=== PATIENT | male | born 1930 | race Caucasian/White ===

== ENCOUNTER 2018-02-03 19:32 | Emergency (ER) | payer MEDICARE, BC ==
[2018-02-03] MEDS ORDERED: Ondansetron 4 MG/2 ML SDV IV ONE (20:13)
[2018-02-03] MEDS ORDERED: Morphine 2 MG/ML Syringe IVPUSH ONE ×2 (20:13→22:04)
[2018-02-03 20:26] LABS: CHLORIDE,CL 102 mmol/L (101-111); SODIUM,NA 139 mmol/L (135-145)
--- NOTE | 2018-02-03 21:12 | EDM.PDOC ---
ED HPI GENERAL MEDICAL PROBLEM - General Chief Complaint: Gastrointestinal Problem Stated Complaint: [id number] PAIN IN SIDE VOMITTING Time Seen by Provider: 02/03/18 19:45 Source of Information: Reports: Patient, Family History Limitations: Reports: No Limitations - History of Present Illness INITIAL COMMENTS - FREE TEXT/NARRATIVE: ED with family c/o of severe left lower abdominal and flank pain since 530 after vomiting twice. Last meal hamburger and chocolate shake. No fever or chills. Left Abdominal Pain Score (Numeric/FACES): 8 - Related Data Allergies Allergy/AdvReac Type Severity Reaction Status Date / Time No Known Allergies Allergy Verified 02/03/18 19:41 Home Meds: Home Meds . [Unable to Verify Home Med List] 02/03/18 [History] Past Medical History HEENT History: Reports: Cataract - Past Surgical History HEENT Surgical History: Reports: Cataract Surgery Social & Family History - Tobacco Use Smoking Status *Q: Never Smoker Second Hand Smoke Exposure: No - Recreational Drug Use Recreational Drug Use: No ED ROS GENERAL - Review of Systems Review Of Systems: See Below Constitutional: Denies: Fever, Chills HEENT: Reports: No Symptoms Respiratory: Reports: No Symptoms Cardiovascular: Reports: No Symptoms GI/Abdominal: Reports: Abdominal Pain (loer left), Nausea (intermittent), Vomiting. Denies: Diarrhea, Distension Musculoskeletal: Reports: No Symptoms Skin: Reports: No Symptoms Neurological: Reports: No Symptoms ED EXAM, GI/ABD - Physical Exam Exam: See Below Exam Limited By: No Limitations General Appearance: Alert, Mild Distress, Thin Ears: Normal External Exam Nose: Normal Inspection Throat/Mouth: Normal Inspection Head: Atraumatic, Normocephalic Respiratory/Chest: No Respiratory Distress, Lungs Clear, Normal Breath Sounds Cardiovascular: Normal Peripheral Pulses, Regular Rate, Rhythm GI/Abdominal Exam: Normal Bowel Sounds, Soft, Tender (left lower, no mass or hernia palpable, left flank tender) Extremities: Normal Inspection Neurological: Alert, Oriented, Normal Cognition, Normal Gait Psychiatric: Normal Affect, Normal Mood Skin Exam: Warm, Dry, Intact, Normal Color Course - Vital Signs Last Recorded V/S: Last Vital Signs Temp 97.8 F 02/03/18 19:36 Pulse 63 02/03/18 19:56 Resp 18 02/03/18 19:56 BP 126/67 02/03/18 19:56 Pulse Ox 97 04/24/18 19:56 - Orders/Labs/Meds Orders: Active Orders 24 hr Category Date Time Status EKG 12 Lead [EKG Documentation Completion] [RC] STAT Care 02/03/18 20:01 Active Labs: Laboratory Tests 02/03/18 02/03/18 02/03/18 Range/Units 20:00 20:00 20:00 WBC 15.2 H (5.0-10.0) 10^3/uL RBC 4.59 L (4.6-6.2) 10^6/uL Hgb 14.2 (14.0-18.0) g/dL Hct 42.8 (40.0-54.0) % MCV 93.2 (80-100) fL MCH 30.9 (27.0-34.0) pg MCHC 33.2 (33.0-35.0) g/dL Plt Count 236 (150-450) 10^3/uL Neut % (Auto) 82.2 H (42.2-75.2) % Lymph % (Auto) 11.8 L (20.5-50.1) % [place] % (Auto) 4.5 (2-8) % Eos % (Auto) 1.3 (1.0-3.0) % Baso % (Auto) 0.2 (0.0-1.0) % Sodium 139 (135-145) mmol/L Potassium 4.1 (3.6-5.0) mmol/L Chloride 102 (101-111) mmol/L Carbon Dioxide 27.0 (21.0-31.0) mmol/L Anion Gap 14.1 BUN 20 H (7-18) mg/dL Creatinine 1.2 (0.6-1.3) mg/dL Est Cr Clr Drug Dosing 38.27 mL/min Estimated GFR (MDRD) 57 BUN/Creatinine Ratio 16.66 Glucose 125 H (74-105) mg/dL Calcium 9.2 (8.4-10.2) mg/dl Total Bilirubin 0.6 (0.2-1.0) mg/dL AST 21 (10-42) IU/L ALT 20 (10-60) IU/L Alkaline Phosphatase 48 (42-121) IU/L Troponin I < 0.02 (0.00-0.02) ng/ml Total Protein 7.1 (6.7-8.2) g/dl Albumin 4.0 (3.2-5.5) g/dl Globulin 3.1 Albumin/Globulin Ratio 1.29 Amylase 63 (28-100) U/L Lipase 34 (22-51) U/L Meds: Medications Discontinued Medications Generic Name Dose Route Start Last Admin Trade Name Misti PRN Reason Stop Dose Admin Morphine Sulfate 2 mg 02/03/18 20:13 02/03/18 20:23 Morphine IVPUSH 02/03/18 20:14 2 mg ONETIME ONE Administration Morphine Sulfate 2 mg 02/03/18 22:04 02/03/18 22:16 Morphine IVPUSH 02/03/18 22:05 2 mg ONETIME ONE Administration Ondansetron HCl 4 mg 02/03/18 20:13 02/03/18 20:21 Zofran IV 02/03/18 20:14 4 mg ONETIME ONE Administration - Radiology Interpretation Free Text/Narrative:: CT abdomen; left renal calculi 3mm obstructing at UPJ with hydronephrosis - Re-Assessments/Exams Free Text/Narrative Re-Assessment/Exam: 02/04/18 02:37 Vagal response with retching with drop in HR to low 30's, rapid rebound with cessation of retching return to 80-90's sinus, no ectopy. [facility] accepting of patient. Tx via [facility]. Family present. Code status discussed. Patient desires no CPR or intubation. Departure - Departure Time of Disposition: 22:35 Disposition: DC/Tfer to Acute Hospital 02 Condition: Fair, Undetermined Clinical Impression: Renal calculus, left - Discharge Information Referrals: PCP,None [Primary Care Provider] - Forms: ED Department Discharge - My Orders Last 24 Hours: My Active Orders 02/03/18 20:01 EKG 12 Lead [EKG Documentation Completion] [RC] STAT - Assessment/Plan Last 24 Hours: My Active Orders 02/03/18 20:01 EKG 12 Lead [EKG Documentation Completion] [RC] STAT
--- NOTE | 2018-02-04 14:42 | EKG ---
02/03/2018 - WINIFRED BERKOWITZ MUNIZ - TIME: 1950 hours. FINDINGS: EKG shows sinus bradycardia, rate of 59 per minute. MODL /[id number]
== END 2018-02-03 22:35 ==
LOC: DL.ED 19:32
DX: N13.2 Hydronephrosis with renal and ureteral calculous obstruction (principal)
CPT/HCPCS: 36415; 74176; 80053; 82150; 83690; 84484; 85025; 93005; 93010; 96374; 96376; 99285; J2270; J2405; 99284

== ENCOUNTER 2018-06-29 10:24 | Emergency (ER) | payer MEDICARE, BC ==
--- NOTE | 2018-06-29 10:59 | CT ---
Clinical history: 88-year-old male injured in fall (hit head) Scan technique: Volume acquisition of data emergency unenhanced CT scan of the head and brain obtaine d while the patient was lying supine on the Siemens multi slice scanner [place], [place]. All data archived in the PACS system for storage, reformatting axial/sagittal/cor onal planes and study (bone/brain windows). Interpretation: Uniformly thick bony calvarium without sign of skull fracture, underlying brain contusion or epidural /subdural hematoma. Age-appropriate atrophy symmetric in appearance with underlying mirror-image normal ventricular syste m. Multiple scattered areas of decreased attenuation throughout the periventricular white matter charact eristic of microvascular ischemic change. No sign of acute intracerebral/intraventricular/subarachnoid bleed. Physiologic midline pineal and symmetric choroid plexus calcifications. Cerebellum and brainstem unre markable. Symmetric clear pneumatization of the paranasal and mastoid sinuses. 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 No sign of skull fracture or acute intracranial bleed.
--- NOTE | 2018-06-29 11:01 | CT ---
Clinical history: 88-year-old male injured in fall (hit head). CT head revealed "Atrophy and microvas cular ischemic infarcts". TECHNIQUE: Volume acquisition of data emergency unenhanced CT scan of the cervical spine obtained wit h the patient was lying supine on the Siemens multi slice scanner [place], [place]. All data archived in the PACS system for storage, reformatting axial/sagittal/coronal p lanes and study. Interpretation: Chronic lower cervical disc degeneration i.e. interspace narrowing endplate sclerosis and hypertrophic marginal/uncinate spur formation (spondylolisthesis). Some straightening of usual cervical lordosis and dense reactive facet joint sclerosis at all levels of the cervical spine. No sign of prevertebral soft tissue swelling, acute cervical fracture or spondylolisthesis. No jumped locked facets. 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 No fractures.
--- NOTE | 2018-06-29 11:13 | CR ---
Clinical history: 88-year-old male injured fall. Interpretation: 3 views right shoulder unremarkable. No sign of right shoulder fracture, acromioclavicular separation, or glenohumeral dislocation. Underlying ribs right lung apex unremarkable. No foreign bodies.
[2018-06-29 11:38] LABS: ANION GAP 16.1
--- NOTE | 2018-06-29 11:44 | EDM.PDOC ---
ED HPI GENERAL MEDICAL PROBLEM - General Chief Complaint: General Stated Complaint: PAIN IN HEAD Time Seen by Provider: 06/29/18 11:00 Source of Information: Reports: Patient History Limitations: Reports: No Limitations - History of Present Illness INITIAL COMMENTS - FREE TEXT/NARRATIVE: This 88 yo male patient was brought to the ED by his son due to an episode of syncope and collapse. The patient has a laceration to the right posterior scalp with minor bleeding. The patient reports a history of intermittent sharp pains in his head, but does not have any head pain at this time. The patient reports he was getting ready this morning when he got "woozy" and fell down. The patient denies any loss of consciousness before, during or after the fall, but does not recall falling or hitting his head. Onset: Today Duration: Minutes:, Constant Location: Reports: Head (right posterior) Quality: Reports: Ache, Dull Severity: Mild Improves with: Reports: None Worsens with: Reports: None Associated Symptoms: Reports: No Other Symptoms Posterior Head Pain Score (Numeric/FACES): 4 - Related Data Allergies Allergy/AdvReac Type Severity Reaction Status Date / Time No Known Allergies Allergy Verified 06/29/18 10:35 Home Meds: Home Meds . 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 ED EXAM, GENERAL - Physical Exam Exam: See Below Exam Limited By: No Limitations General Appearance: Alert, WD/WN, No Apparent Distress Eye Exam: Bilateral Eye: EOMI, Normal Inspection, PERRL Ears: Normal External Exam, Normal Canal, Hearing Grossly Normal, Normal TMs Nose: Normal Inspection Throat/Mouth: Normal Inspection, Normal Lips, Normal Teeth, Normal Gums, Normal Oropharynx, Normal Voice, No Airway Compromise Head: Other (laceration to the right posterior scalp) Neck: Normal Inspection, Supple, Non-Tender, Full Range of Motion Respiratory/Chest: No Respiratory Distress, Lungs Clear, Normal Breath Sounds, No Accessory Muscle Use, Chest Non-Tender Cardiovascular: Normal Peripheral Pulses, Regular Rate, Rhythm, No Edema, No Gallop, No JVD, No Murmur, No Rub GI/Abdominal: Normal Bowel Sounds, Soft, Non-Tender, No Organomegaly, No Distention, No Abnormal Bruit, No Mass (Male) Exam: Deferred Rectal (Males) Exam: Deferred Back Exam: Normal Inspection, Full Range of Motion, NT Extremities: Arm Pain (right posterior shoulder abrasion) Neurological: Alert, Oriented, CN II-XII Intact, Normal Cognition, Normal Gait, Normal Reflexes, No Motor/Sensory Deficits Psychiatric: Normal Affect, Normal Mood Skin Exam: Wound/Incision (right posterior scalp) Lymphatic: No Adenopathy ED GENERAL MEDICAL PROCEDURES - Laceration/Wound Repair Right Posterior Head Lac/wound length in cm: 4.0 Appearance: Subcutaneous, Linear Distal NVT: Neuro & Vascular Intact Skin Prep: Chlorhexidine (Hibiciens), Saline Exploration/Debridement/Repair: Wound Explored, In a Bloodless Field Closed with: Juan Francisco # of Sutures: 7 Sterile Dressing Applied: Nurse Tetanus Status Addressed: Yes Complications: No Course - Vital Signs Last Recorded V/S: Last Vital Signs Temp 36.1 C 06/29/18 10:27 Pulse 81 06/29/18 10:49 Resp 15 06/29/18 10:27 BP 122/66 06/29/18 10:49 Pulse Ox 100 06/29/18 10:49 - Orders/Labs/Meds Orders: Active Orders 24 hr Category Date Time Status CMP [COMPREHENSIVE METABOLIC PN,CMP] [CHEM] Stat Lab 06/29/18 11:12 Received Labs: Laboratory Tests 06/29/18 Range/Units 11:12 WBC 11.5 H (5.0-10.0) 10^3/uL RBC 5.03 (4.6-6.2) 10^6/uL Hgb 15.2 (14.0-18.0) g/dL Hct 47.0 (40.0-54.0) % MCV 93.4 (80-100) fL MCH 30.2 (27.0-34.0) pg MCHC 32.3 L (33.0-35.0) g/dL Plt Count 272 (150-450) 10^3/uL Neut % (Auto) 84.4 H (42.2-75.2) % Lymph % (Auto) 10.8 L (20.5-50.1) % [place] % (Auto) 4.3 (2-8) % Eos % (Auto) 0.3 L (1.0-3.0) % Baso % (Auto) 0.2 (0.0-1.0) % Departure - Departure Time of Disposition: 12:15 Disposition: Home, Self-Care 01 Condition: Fair Clinical Impression: Fall from ground level Scalp laceration Qualifiers: Encounter type: initial encounter Qualified Code(s): S01.01XA - Laceration without foreign body of scalp, initial encounter - Discharge Information *PRESCRIPTION DRUG MONITORING PROGRAM REVIEWED*: Not Applicable *COPY OF PRESCRIPTION DRUG MONITORING REPORT IN PATIENT CHAPITO: Not Applicable Instructions: Stitches, [place], or Adhesive Wound Closure, [id number] Care Plan Goals: The patient was advised of the examination, lab and CT results during the visit. The patient's wound margins were well approximated with juan francisco during the visit. The patient was advised to have the juan francisco removed in 10-14 days by his primary care facility. If the patient has any additional symptoms or concerns, the patient should visit his primary care facility or return to the emergency department. - My Orders Last 24 Hours: My Active Orders 06/29/18 11:12 CMP [COMPREHENSIVE METABOLIC PN,CMP] [CHEM] Stat - Assessment/Plan Last 24 Hours: My Active Orders 06/29/18 11:12 CMP [COMPREHENSIVE METABOLIC PN,CMP] [CHEM] Stat
== END 2018-06-29 12:35 | disposition home or self-care (01) ==
LOC: DL.ED 10:24
DX: S01.01XA Laceration without foreign body of scalp, initial encounter (principal); W18.39XA Other fall on same level, initial encounter; Z79.899 Other long term (current) drug therapy; Z77.22 Contact with and (suspected) exposure to environmental tobacco smoke (acute) (chronic)
CPT/HCPCS: 12002; 36415; 70450; 72125; 73030-RT; 80053; 85025; 99283; 99284

== ENCOUNTER 2019-07-08 15:19 | Emergency (ER) | payer MEDICARE, BC ==
[2019-07-08] MEDS: Sodium Chloride 0.9% 10 ML Syringe FLUSH PRN (15:37)
[2019-07-08] MEDS: Aspirin 81 MG Tab.Chew PO ONE (15:49)
[2019-07-08] MEDS: Heparin Sodium 5,000 Units/ML Vial IVPUSH ONE (15:50)
[2019-07-08] MEDS: Heparin Sodium/0.45% NaCl 25,000 UNITS/500 ML BAG IV SCH (15:51)
--- NOTE | 2019-07-08 15:53 | CR ---
EXAMINATION: Chest 1V Frontal SEX: Male AGE: 89 years CLINICAL HISTORY: 89-year-old male emergency department with chest pain. No comparison films immediately available. INTERPRETATION: 1. Normal cardiac silhouette and AP bony thorax unremarkable (external creative art director leads). 2. Normal midline airway and no lobar pneumonia, atelectasis or collapse. 3. No pulmonary venous congestion, cephalization of vascular flow, alveolar edema or dependent effusion. 4. No lung mass or hilar lymphadenopathy. 5. No pneumothorax, pneumomediastinum or free subdiaphragmatic air. CONCLUSION: No acute cardiopulmonary abnormality.
[2019-07-08 16:02] LABS: ANION GAP 13.3; CHLORIDE,CL 104 mmol/L (101-111); SODIUM,NA 140 mmol/L (135-145)
--- NOTE | 2019-07-09 15:28 | EDM.PDOC ---
ED HPI GENERAL MEDICAL PROBLEM - General Chief Complaint: Chest Pain Stated Complaint: HEART ATTACK PER PT... Time Seen by Provider: 07/08/19 15:29 Source of Information: Reports: Patient, Family, RN, RN Notes Reviewed History Limitations: Reports: No Limitations - History of Present Illness INITIAL COMMENTS - FREE TEXT/NARRATIVE: Pt to ER with c/o "having a heart attack". Pt states @ 1430 he had a midsternal/ epigastric chest pain, rated 10/10 with nausea. Did not radiate. States the pain now is 2/10. Denies any cardiac hx. States recently began a med for "urine " started by urologist. States he doctors at the [facility]. 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 Cardiovascular History: Reports: None Respiratory History: Reports: None Gastrointestinal History: Reports: None Genitourinary History: Reports: Retention, Urinary Musculoskeletal History: Reports: None Neurological History: Reports: None Psychiatric History: Reports: None Endocrine/Metabolic History: Reports: None Hematologic History: Reports: None Immunologic History: Reports: None Oncologic (Cancer) History: Reports: None Dermatologic History: Reports: None - Infectious Disease History Infectious Disease History: Reports: None - Past Surgical History Head Surgeries/Procedures: Reports: None HEENT Surgical History: Reports: Cataract Surgery Social & Family History - Family History Family Medical History: Noncontributory - Tobacco Use Smoking Status *Q: Never Smoker Second Hand Smoke Exposure: No - Caffeine Use Caffeine Use: Reports: Coffee - Recreational Drug Use Recreational Drug Use: No ED ROS GENERAL - Review of Systems Review Of Systems: ROS reveals no pertinent complaints other than HPI. ED EXAM, GENERAL - Physical Exam Exam: See Below Exam Limited By: No Limitations General Appearance: Alert, WD/WN, Mild Distress Eye Exam: Bilateral Eye: EOMI, Normal Inspection Ears: Normal External Exam, Hearing Grossly Normal Nose: Normal Inspection Throat/Mouth: Normal Inspection, Normal Voice, No Airway Compromise Head: Atraumatic, Normocephalic Neck: Normal Inspection, Supple, Non-Tender, Full Range of Motion Respiratory/Chest: No Respiratory Distress, Lungs Clear, Normal Breath Sounds, No Accessory Muscle Use, Chest Non-Tender Cardiovascular: Normal Peripheral Pulses, Regular Rate, Rhythm, No Edema, No Gallop, No JVD, No Murmur, No Rub Peripheral Pulses: 2+: Radial (L), Radial (R) GI/Abdominal: Normal Bowel Sounds, Soft, Non-Tender (Male) Exam: Deferred Rectal (Males) Exam: Deferred Back Exam: Normal Inspection, Full Range of Motion, NT Extremities: Normal Inspection, Normal Range of Motion, Non-Tender, Normal Capillary Refill, No Pedal Edema Neurological: Alert, Oriented, CN II-XII Intact, Normal Cognition, Normal Gait, Normal Reflexes, No Motor/Sensory Deficits Psychiatric: Normal Affect, Normal Mood, Anxious, Tearful Skin Exam: Warm, Dry, Intact, Normal Color, No Rash Lymphatic: No Adenopathy Course - Vital Signs Last Recorded V/S: Last Vital Signs Temp 97.3 F 07/08/19 15:29 Pulse 74 07/08/19 15:29 Resp 20 07/08/19 15:29 BP 120/76 07/08/19 15:29 Pulse Ox 98 07/08/19 15:29 - Orders/Labs/Meds Orders: Active Orders 24 hr Category Date Time Status EKG Documentation Completion [RC] STAT Care 07/08/19 15:30 Active Peripheral IV Care [RC] . DIRECTED Care 07/08/19 15:31 Active Peripheral IV Insertion Adult [OM.PC] Stat Oth 07/08/19 15:29 Ordered Labs: Laboratory Tests 07/08/19 07/08/19 07/08/19 Range/Units 15:31 15:31 15:31 WBC 19.8 H (5.0-10.0) 10^3/uL RBC 4.79 (4.6-6.2) 10^6/uL Hgb 14.6 (14.0-18.0) g/dL Hct 44.2 (40.0-54.0) % MCV 92.3 (80-100) fL MCH 30.5 (27.0-34.0) pg MCHC 33.0 (33.0-35.0) g/dL Plt Count 230 (150-450) 10^3/uL Neut % (Auto) 69.7 (42.2-75.2) % Lymph % (Auto) 19.2 L (20.5-50.1) % [place] % (Auto) 10.6 H (2-8) % Eos % (Auto) 0.4 L (1.0-3.0) % Baso % (Auto) 0.1 (0.0-1.0) % PT 9.9 (9.0-12.0) SEC INR 1.0 (0.9-1.2) Sodium 140 (135-145) mmol/L Potassium 4.3 (3.6-5.0) mmol/L Chloride 104 (101-111) mmol/L Carbon Dioxide 27.0 (21.0-31.0) mmol/L Anion Gap 13.3 BUN 17 (7-18) mg/dL Creatinine 1.1 (0.6-1.3) mg/dL Est Cr Clr Drug Dosing 40.50 mL/min Estimated GFR (MDRD) > 60 BUN/Creatinine Ratio 15.45 Glucose 125 H (74-105) mg/dL Calcium 8.9 (8.4-10.2) mg/dl Total Bilirubin 1.1 H (0.2-1.0) mg/dL AST 53 H (10-42) IU/L ALT 20 (10-60) IU/L Alkaline Phosphatase 54 (42-121) IU/L Troponin I 4.34 H* (0.00-0.02) ng/ml B-Natriuretic Peptide 712 H (0-100) pg/ml Total Protein 7.2 (6.7-8.2) g/dl Albumin 3.8 (3.2-5.5) g/dl Globulin 3.4 Albumin/Globulin Ratio 1.12 Meds: Medications Discontinued Medications Generic Name Dose Route Start Last Admin Trade Name Freq PRN Reason Stop Dose Admin Aspirin 324 mg 07/08/19 15:42 07/08/19 15:49 Aspirin PO 07/08/19 15:43 324 mg ONETIME ONE Administration Heparin Sodium (Porcine) 3,500 units 07/08/19 15:44 07/08/19 15:50 Heparin Sodium IVPUSH 07/08/19 15:45 3,500 units .BOLUS ONE Administration Heparin Sodium/Sodium Chloride 25,000 units in 500 mls @ 14.805 mls/hr 15:45 07/08/19 15:51 Heparin 25,000 Units In 1/2 Ns 500 Ml IV 12 units/kg/hr TITRATE KELLEE 14.805 mls/hr Administration Protocol 12 UNITS/KG/HR Sodium Chloride 10 ml 07/08/19 15:29 07/08/19 15:37 Saline Flush FLUSH 10 ml ASDIRECTED PRN Administration Keep Vein Open - Radiology Interpretation Free Text/Narrative:: Chest xray: No acute findings See rad report - Re-Assessments/Exams Free Text/Narrative Re-Assessment/Exam: EKG with ST elevation sent to [facility] to be reviewed by Front Elevator Operator. Discussed patient case with Dr. Saucedo who requested the patient be started on a Heparin drip and transferred KATIE to [facility] for CathLab. Departure - Departure Time of Disposition: 16:12 Disposition: DC/Tfer to Acute Hospital 02 Reason for Transfer *Q: Other Condition: Fair, Serious Clinical Impression: STEMI (ST elevation myocardial infarction) Qualifiers: Involved coronary artery: other anterior wall coronary artery Qualified Code(s) : I21.09 - ST elevation (STEMI) myocardial infarction involving other coronary artery of anterior wall Referrals: PCP,None [Primary Care Provider] - Forms: ED Department Discharge, Interfacility Transfer JAY - My Orders Last 24 Hours: My Active Orders 07/08/19 15:29 Peripheral IV Insertion Adult [OM.PC] Stat 07/08/19 15:30 EKG Documentation Completion [RC] STAT 07/08/19 15:31 Peripheral IV Care [RC] . DIRECTED - Assessment/Plan Last 24 Hours: My Active Orders 07/08/19 15:29 Peripheral IV Insertion Adult [OM.PC] Stat 07/08/19 15:30 EKG Documentation Completion [RC] STAT 07/08/19 15:31 Peripheral IV Care [RC] . DIRECTED
== END 2019-07-08 16:15 ==
LOC: DL.ED 15:19
DX: I21.09 ST elevation (STEMI) myocardial infarction involving other coronary artery of anterior wall (principal); Z98.49 Cataract extraction status, unspecified eye
CPT/HCPCS: 36415; 71045; 80053; 83880; 84484; 85025; 85610; 93005; 96365; 96376; 99285; A9270; J1644